=== PATIENT | female | born 1985 | race American Indian/Alaskan Native ===

== ENCOUNTER 2018-03-20 10:01 | Inpatient (IN) | payer MEDICAID ==
[2018-03-20 10:04] VITALS: BMI 31.4
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
--- NOTE | 2018-03-20 13:14 | MRI ---
Date of service: 03/20/2018 PROCEDURE: MRI BRAIN WITHOUT CONTRAST HISTORY: Blurry vision L COMPARISON: Comparison made with prior CT scan brain 10/19/2014. The yes so this is TECHNIQUE: Multiplanar, multisequence MR images of the brain were obtained without intravenous contrast enhancement. FINDINGS: HEMORRHAGE: Parenchymal, subarachnoid nor extra-axial hemorrhage. No evidence of hemosiderin deposition is identified on gradient echo weighted sequence. DWI: The there are 2 small focal areas of restricted diffusion in the periventricular and deep white matter left occipito parietal watershed zone region.. These findings are felt to represent shine through artifact (and not felt to represent acute infarcts given this patient's age and deep white matter location of the foci of restricted diffusion), likely within small MS plaques as there are additional small focal areas of on rounded elliptical shaped increased T2 signal scattered about the periventricular and slightly deeper white matter consistent with demyelinating disease process and likely multiple sclerosis. No obvious parenchymal nor extra-axial masses or collections. Ventricular and sulcal size are within range of normal for this patient's stated age BRAIN PARENCHYMA: No mass effect or edema. No atrophy or chronic microvascular ischemic changes. VENTRICLES: No obstructive hydrocephalus. CRANIUM: Calvarium unremarkable. ORBITS: Orbits and contents appear unremarkable. PARANASAL SINUSES/MASTOIDS: There is a small focal area polypoid like mucosal thickening and or mucous retention cyst formation left maxillary antrum. The VASCULAR SYSTEM: The visualized major void vascular flow voids at skull base patent the the. OTHER FINDINGS: None. IMPRESSION: Consistent with a demyelinating disease process such as multiple sclerosis. Two small focal areas of restricted diffusion in the left periatrial and subcortical white matter watershed zone left occipito parietal region likely represent shine through artifact within demyelinating plaques. Acute infarcts would be less likely in this age group and and deep white matter location. The No acute intracranial hemorrhage. These findings discussed with Dr. Hand at approximately 1:05p.m. with written down and read back verification
[2018-03-20 14:49] LABS: ALB/GLOB RATIO 1.3 (1.0-2.1); ALBUMIN 4.6 g/dL (3.5-5.0); ALT/SGPT 23 U/L (9-52); AST/SGOT 26 U/L (14-36); BLOOD UREA NITROGEN 6 mg/dl (7-17); CALCIUM 9.5 mg/dL (8.4-10.2); GFR NON-AFRICAN AMERICAN > 60
[2018-03-20 14:51] LABS: BASO # 0.1 K/uL (0.0-0.2); BASO % 0.7 % (0.0-2.0); EOS # 0.3 K/uL (0.0-0.7); EOS % 1.8 % (0.0-4.0); HEMOGLOBIN 13.8 g/dL (12.0-16.0); LYMPH # 4.9 K/uL (1.0-4.3); LYMPH % 28.3 % (20.0-40.0); MEAN CELL VOLUME 95.9 fl (81.0-99.0); MEAN CORPUSCULAR HEMOGLOBIN 30.4 pg (27.0-31.0); MEAN CORPUSCULAR HGB CONC 31.7 g/dL (33.0-37.0); MEAN PLATELET VOLUME 7.4 fl (7.2-11.7); MONO # 1.1 K/uL (0.0-0.8); MONO % 6.3 % (0.0-10.0); NEUT # 10.9 K/uL (1.8-7.0); NEUT % 62.9 % (50.0-75.0); NRBC % 0.2 % (0.0-0.0); RBC 4.55 Mil/uL (3.80-5.20); RED CELL DISTRIBUTION WIDTH 13.3 % (11.5-14.5); WHITE BLOOD COUNT 17.3 K/uL (4.8-10.8)
[2018-03-20 14:54] LABS: INR 1.1; PROTHROMBIN TIME 12.4 Seconds (9.8-13.1)
[2018-03-20] MEDS ORDERED: Potassium Chloride 20 mEq ER Tab PO STA (14:55)
[2018-03-20 14:57] LABS: PARTIAL THROMBOPLASTIN TIME 30.5 Seconds (25.6-37.1)
[2018-03-20 15:27] LABS: SQUAMOUS EPITHIAL 2 /hpf (0-5); URINE BACTERIA RARE (<OCC); URINE BILIRUBIN NEGATIVE (NEGATIVE); URINE BLOOD SMALL (NEGATIVE); URINE CLARITY SLIGHTY-CLOUDY (Clear); URINE COLOR YELLOW (YELLOW); URINE GLUCOSE (UA) NEG (NEGATIVE); URINE LEUKOCYTE ESTERASE NEG Leu/uL (Negative); URINE PROTEIN NEGATIVE (NEGATIVE); URINE UROBILINOGEN 0.2-1.0 mg/dL (0.2-1.0)
[2018-03-20] MEDS ORDERED: Potassium Chloride 20 mEq ER Tab PO ONE (15:40)
--- NOTE | 2018-03-20 22:38 | CP.PCM.CON ---
History of Present Illness - History of Present Illness History of Present Illness: Neurology Consultation Note: Mrs. Mcelroy is a 32-year-old woman who states that she has been having some numbness in her leg and developed blurry vision and pain in her left eye. She describes it as if there is a constant glare in her eyes. The patient had a test prior to CT scan and was found to be . She has two other children. CT was therefor not done, but MRI was done and demonstrated multiple T2 hyperintensities consistent with multiple sclerosis. They involve the corpus callosum and the occipital lobe. Neurology was consulted to assist with the management and care. The patient was offered an LP, but she refused tonight and said she would prefer to think about it. Steroids were not started due to the , and OB was consulted. Review of Systems - Constitutional Constitutional: As Per HPI - EENT Eyes: As Per HPI Ears: absent: As Per HPI, Decreased Hearing, Ear Discharge, Ear Pain, Tinnitus, Abnormal Hearing, Disequilibrium, Dizziness, Other Nose/Mouth/Throat: absent: As Per HPI, Epistaxis, Nasal Congestion, Nasal Discharge, Nasal Obstruction, Nasal Trauma, Nose Pain, Post Nasal Drip, Sinus Pain, Sinus Pressure, Bleeding Gums, Change in Voice, Dental Pain, Dry Mouth, Dysphagia, Halitosis, Hoarsness, Lip Swelling, Mouth Lesions, Mouth Pain, Odynophagia, Sore Throat, Throat Swelling, Tongue Swelling, Facial Pain, Neck Pain, Neck Mass, Other - Breasts Breasts: absent: As Per HPI, Change in Shape, Mass, Pain, Nipple Discharge, Nipple Inversion, Skin Changes, Swelling, Other - Cardiovascular Cardiovascular: absent: As Per HPI, Acrocyanosis, Chest Pain, Chest Pain at Rest, Chest Pain with Activity, Claudication, Diaphoresis, Dyspnea, Dyspnea on Exertion, Edema, Irregular Heart Rhythm, Pain Radiating to Arm/Neck/Jaw, Leg Edema, Leg Ulcers, Lightheadedness, Orthopnea, Palpitations, Paroxysmal Nocturnal Dyspnea, Pedal Edema, Radiating Pain, Rapid Heart Rate, Slow Heart Rate, Syncope, Other - Respiratory Respiratory: absent: As Per HPI, Cough, Dyspnea, Hemoptysis, Dyspnea on Exertion, Wheezing, Snoring, Stridor, Pain on Inspiration, Chest Congestion, Excessive Mucous Production, Change in Mucous Color, Pain with Coughing, Other - Genitourinary Genitourinary: absent: As Per HPI, Change in Urinary Stream, Difficulty Urinating, Dysuria, Flank Pain, Hematuria, Pyuria, Nocturia, Urinary Incontinence, Urinary Frequency, Urinary Hesitance, Urinary Urgency, Voiding Freq/Small Amts, Freq UTI, Hx Renal/Bladder Calculi, Hx /Renal Surgery, Bladder Distension, Other - Musculoskeletal Musculoskeletal: absent: As Per HPI, Abnormal Gait, Arthralgias, Atrophy, Back Pain, Deformity, Joint Swelling, Limited Range of Motion, Loss of Height, Muscle Cramps, Muscle Weakness, Myalgias, Neck Pain, Numbness, Radiating Pain into Limb , Stiffness, Tingling, Other - Integumentary Integumentary: absent: As Per HPI, Acne, Alopecia, Bleeding Lesions, Change in Hair, Change in Nails, Change in Pigmentation, Changing Lesions, Dry Skin, Erythema, Furuncle, Hirsutism, Lesions, New Lesions, Non-Healing Lesions, Photosensitivity, Pruritus, Rash, Skin Pain, Skin Ulcer, Sores, Striae, Swelling, Unusual Bruising, Wounds, Jaundice, Other - Neurological Neurological: As Per HPI - Psychiatric Psychiatric: absent: As Per HPI, Abnormal Sleep Pattern, Anhedonia, Anxiety, Auditory Hallucinations, Behavioral Changes, Change in Appetite, Change in Libido, Confusion, Depression, Difficulty Concentrating, Hallucinations, Homicid al Ideation, Hopelessness, Irritability, Memory Loss, Mood Swings, Panic Attacks, Paranoia, Suicidal Ideation, Visual Hallucinations, Tactile Hallucinations, Other - Endocrine Endocrine: absent: As Per HPI, Change in Body Appearance, Change in Libido, Cold Intolorance, Deepening of Voice, Excessive Sweating, Fatigue, Flushing, Heat Intolorance, Increase in Ring/Shoe/Hat Size, Palpitations, Polydipsia, Polyphagia, Polyuria, Other - Hematologic/Lymphatic Hematologic: absent: As Per HPI, Easy Bleeding, Easy Bruising, Lymphadenopathy, Other Past Patient History - Past Social History Smoking Status: Light Smoker < 10 Cigarettes Daily - PULMONARY Hx Asthma: Yes - PSYCHIATRIC Hx Substance Use: No - SURGICAL HISTORY Hx Cholecystectomy: Yes - ANESTHESIA Hx Anesthesia: Yes Hx Anesthesia Reactions: No Meds Allergies/Adverse Reactions: Allergies Allergy/AdvReac Type Severity Reaction Status Date / Time Penicillins Allergy SWELLING Verified 03/20/18 10:09 Physical Exam - Constitutional Appears: Well - Head Exam Head Exam: ATRAUMATIC, NORMAL INSPECTION, NORMOCEPHALIC - Eye Exam Eye Exam: EOMI, Normal appearance, PERRL Pupil Exam: NORMAL ACCOMODATION, PERRL Additional comments: The patient complains of blurry vision of the left eye. Fundoscopic exam was normal. - ENT Exam ENT Exam: Mucous Membranes Moist, Normal Exam - Neck Exam Neck exam: Positive for: Normal Inspection - Respiratory Exam Respiratory Exam: Clear to Auscultation Bilateral, NORMAL BREATHING PATTERN - Cardiovascular Exam Cardiovascular Exam: REGULAR RHYTHM, +S1, +S2 - GI/Abdominal Exam GI & Abdominal Exam: Normal Bowel Sounds, Soft. absent: Tenderness - Extremities Exam Extremities exam: Positive for: normal inspection - Back Exam Back exam: NORMAL INSPECTION - Neurological Exam Neurological exam: Alert, CN II-XII Intact, Normal Gait, Oriented x3, Reflexes Normal Additional comments: Decreased sensation over the left lower extremity as compared with the right. Slight pronator drift on the right. - Psychiatric Exam Psychiatric exam: Normal Affect, Normal Mood - Skin Skin Exam: Dry, Intact, Normal Color, Warm Results - Vital Signs Recent Vital Signs: Last Vital Signs Temp 98.2 F 03/20/18 19:42 Pulse 89 03/20/18 19:42 Resp 20 03/20/18 19:42 BP 110/73 03/20/18 19:42 Pulse Ox 97 03/20/18 19:42 - Labs Result Diagrams: 03/20/18 14:40 03/20/18 14:25 Labs: Laboratory Results - last 24 hr 03/20/18 03/20/18 03/20/18 14:25 14:25 14:40 WBC 17.3 H D RBC 4.55 Hgb 13.8 Hct 43.6 MCV 95.9 MCH 30.4 MCHC 31.7 L RDW 13.3 Plt Count 62 L D MPV 7.4 Neut % (Auto) 62.9 Lymph % (Auto) 28.3 [place] % (Auto) 6.3 Eos % (Auto) 1.8 Baso % (Auto) 0.7 Neut # (Auto) 10.9 H Lymph # (Auto) 4.9 H [place] # (Auto) 1.1 H Eos # (Auto) 0.3 Baso # (Auto) 0.1 PT 12.4 INR 1.1 APTT 30.5 Sodium 138 Potassium 3.5 L Chloride 104 Carbon Dioxide 24 Anion Gap 14 BUN 6 L Creatinine 0.6 L Est GFR ( Amer) > 60 Est GFR (Non-Af Amer) > 60 Random Glucose 89 Calcium 9.5 Total Bilirubin 0.6 AST 26 ALT 23 Alkaline Phosphatase 55 Total Protein 8.1 Albumin 4.6 Globulin 3.5 Albumin/Globulin Ratio 1.3 Beta HCG, Quant 6760.50 Urine Color Urine Clarity Urine pH Ur Specific [place] Urine Protein Urine Glucose (UA) Urine Ketones Urine Blood Urine Nitrate Urine Bilirubin Urine Urobilinogen Ur Leukocyte Esterase Urine RBC (Auto) Urine Microscopic WBC Ur Squamous Epith Cells Urine Bacteria 03/20/18 15:10 WBC RBC Hgb Hct MCV MCH MCHC RDW Plt Count MPV Neut % (Auto) Lymph % (Auto) [place] % (Auto) Eos % (Auto) Baso % (Auto) Neut # (Auto) Lymph # (Auto) [place] # (Auto) Eos # (Auto) Baso # (Auto) PT INR APTT Sodium Potassium Chloride Carbon Dioxide Anion Gap BUN Creatinine Est GFR ( Amer) Est GFR (Non-Af Amer) Random Glucose Calcium Total Bilirubin AST ALT Alkaline Phosphatase Total Protein Albumin Globulin Albumin/Globulin Ratio Beta HCG, Quant Urine Color Yellow Urine Clarity Slighty-cloudy Urine pH 6.0 Ur Specific [place] 1.012 Urine Protein Negative Urine Glucose (UA) Neg Urine Ketones Negative Urine Blood Small Urine Nitrate Negative Urine Bilirubin Negative Urine Urobilinogen 0.2-1.0 Ur Leukocyte Esterase Neg Urine RBC (Auto) 4 H Urine Microscopic WBC < 1 Ur Squamous Epith Cells 2 Urine Bacteria Rare Assessment & Plan (1) Multiple sclerosis Assessment and Plan: The patient's symptoms and imaging are consistent with MS and optic neuritis. The risks/benefits of steroids were discussed with the patient. Help from OB is appreciated to determine the risk for the baby as well. IF the patient agrees CSF analysis may be obtained. I recommended that the patient is transferred or receives care from a specialty MS center like [facility] or [facility]. Thank you for this consultation. Status: Acute
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
[2018-03-21 07:46] LABS: HEMOGLOBIN 13.1 g/dL (12.0-16.0); MEAN CELL VOLUME 95.4 fl (81.0-99.0); MEAN CORPUSCULAR HGB CONC 32.5 g/dL (33.0-37.0); RBC 4.23 Mil/uL (3.80-5.20); RED CELL DISTRIBUTION WIDTH 13.2 % (11.5-14.5); WHITE BLOOD COUNT 14.8 K/uL (4.8-10.8)
[2018-03-21 09:03] LABS: ALB/GLOB RATIO 1.3 (1.0-2.1); ALT/SGPT 22 U/L (9-52); AST/SGOT 18 U/L (14-36); BLOOD UREA NITROGEN 8 mg/dl (7-17); GFR NON-AFRICAN AMERICAN > 60
--- NOTE | 2018-03-21 09:03 | CP.PCM.CON ---
History of Present Illness - History of Present Illness History of Present Illness: 32yo female admitted for eye pain wit recent diagnosis of optic neuritis and MS. Pt incidentally found to be . Ultrasound reveals one, possibly two, intrauterine gestational sacs. Yolk sac visualized in one gestational sac. Otherwise unremarkable ultrasound. Pt denied any abd pain, cramping, bleeding, nausea or vomiting. I discussed ultrasound findings with patient. Also discussed general precautions and information. Past Patient History - Past Medical History & Family History Past Medical History?: Yes - Past Social History Smoking Status: Light Smoker < 10 Cigarettes Daily - CARDIAC Hx Cardiac Disorders: No - PULMONARY Hx Asthma: Yes - NEUROLOGICAL Hx Neurological Disorder: No - HEENT Hx HEENT Problems: Yes Hx Blind: Yes (R eye - congenital) - RENAL Hx Chronic Kidney Disease: No - ENDOCRINE/METABOLIC Hx Endocrine Disorders: No - HEMATOLOGICAL/ONCOLOGICAL Hx Blood Disorders: No Hx AIDS: No Hx Human Immunodeficiency Virus (HIV): No - INTEGUMENTARY Hx Dermatological Problems: No - MUSCULOSKELETAL/RHEUMATOLOGICAL Hx Musculoskeletal Disorders: No Hx Falls: No - GASTROINTESTINAL Hx Gastrointestinal Disorders: No - GENITOURINARY/GYNECOLOGICAL Hx Genitourinary Disorders: No - PSYCHIATRIC Hx Substance Use: No - SURGICAL HISTORY Hx Cholecystectomy: Yes - ANESTHESIA Hx Anesthesia: Yes Hx Anesthesia Reactions: No Meds Allergies/Adverse Reactions: Allergies Allergy/AdvReac Type Severity Reaction Status Date / Time Penicillins Allergy SWELLING Verified 03/20/18 10:09 Physical Exam - Constitutional Appears: Well, No Acute Distress - Head Exam Head Exam: ATRAUMATIC - Eye Exam Eye Exam: PERRL - ENT Exam ENT Exam: Mucous Membranes Moist - Respiratory Exam Respiratory Exam: NORMAL BREATHING PATTERN - Cardiovascular Exam Cardiovascular Exam: REGULAR RHYTHM - GI/Abdominal Exam GI & Abdominal Exam: Soft. absent: Distended, Tenderness Results - Vital Signs Recent Vital Signs: Last Vital Signs Temp 97.5 F L 03/21/18 07:54 Pulse 74 03/21/18 07:54 Resp 20 03/21/18 07:54 BP 100/67 03/21/18 07:54 Pulse Ox 98 03/21/18 07:54 - Labs Result Diagrams: 03/21/18 05:30 03/20/18 14:25 Labs: Laboratory Results - last 24 hr 03/20/18 03/20/18 03/20/18 14:25 14:25 14:40 WBC 17.3 H D RBC 4.55 Hgb 13.8 Hct 43.6 MCV 95.9 MCH 30.4 MCHC 31.7 L RDW 13.3 Plt Count 62 L D MPV 7.4 Neut % (Auto) 62.9 Lymph % (Auto) 28.3 Cobb % (Auto) 6.3 Eos % (Auto) 1.8 Baso % (Auto) 0.7 Neut # (Auto) 10.9 H Lymph # (Auto) 4.9 H Cobb # (Auto) 1.1 H Eos # (Auto) 0.3 Baso # (Auto) 0.1 PT 12.4 INR 1.1 APTT 30.5 Sodium 138 Potassium 3.5 L Chloride 104 Carbon Dioxide 24 Anion Gap 14 BUN 6 L Creatinine 0.6 L Est GFR ( Amer) > 60 Est GFR (Non-Af Amer) > 60 Random Glucose 89 Calcium 9.5 Total Bilirubin 0.6 AST 26 ALT 23 Alkaline Phosphatase 55 Total Protein 8.1 Albumin 4.6 Globulin 3.5 Albumin/Globulin Ratio 1.3 Beta HCG, Quant 6760.50 Urine Color Urine Clarity Urine pH Ur Specific [place]li[place] Urine Protein Urine Glucose (UA) Urine Ketones Urine Blood Urine Nitrate Urine Bilirubin Urine Urobilinogen Ur Leukocyte Esterase Urine RBC (Auto) Urine Microscopic WBC Ur Squamous Epith Cells Urine Bacteria 03/20/18 03/21/18 15:10 05:30 WBC 14.8 H RBC 4.23 Hgb 13.1 Hct 40.3 MCV 95.4 MCH 31.0 MCHC 32.5 L RDW 13.2 Plt Count 32 L D MPV Neut % (Auto) Lymph % (Auto) Cobb % (Auto) Eos % (Auto) Baso % (Auto) Neut # (Auto) Lymph # (Auto) Cobb # (Auto) Eos # (Auto) Baso # (Auto) PT INR APTT Sodium Potassium Chloride Carbon Dioxide Anion Gap BUN Creatinine Est GFR ( Amer) Est GFR (Non-Af Amer) Random Glucose Calcium Total Bilirubin AST ALT Alkaline Phosphatase Total Protein Albumin Globulin Albumin/Globulin Ratio Beta HCG, Quant Urine Color Yellow Urine Clarity Slighty-cloudy Urine pH 6.0 Ur Specific [place] 1.012 Urine Protein Negative Urine Glucose (UA) Neg Urine Ketones Negative Urine Blood Small Urine Nitrate Negative Urine Bilirubin Negative Urine Urobilinogen 0.2-1.0 Ur Leukocyte Esterase Neg Urine RBC (Auto) 4 H Urine Microscopic WBC < 1 Ur Squamous Epith Cells 2 Urine Bacteria Rare - Imaging and Cardiology US - abdomen Status: Image reviewed by me, Report reviewed by me Additional comment: OB pelvic ultrasound Assessment & Plan - Assessment and Plan (Free Text) Assessment: MS and optic neuritis. <5wks gestation age with IUP, possible twins gestation. No obstetrical issues at this time. Plan: I discussed plan with Maternal Medicine. vitamins. Steroid course can be used if indicated. Pain control. NSAIDS can be used in until third trimester. Medical management via neurology team. Recommend full consultation with MFM as outpatient [facility] to discuss vp site issues. I discussed plan with patient and all patient questions answered. - Date & Time Date: 03/21/18 Time: 09:09
[2018-03-21] MEDS ORDERED: methylPREDNISolone 1 GM in Sodium Chloride 0.9% 250 ML IV ONE (12:03)
[2018-03-21] MEDS: Prenatal Multivit/Folic Acid/Iron Tab PO SCH (13:50)
--- NOTE | 2018-03-21 13:56 | CP.PCM.PN ---
Subjective - Date & Time of Evaluation Date of Evaluation: 03/21/18 Time of Evaluation: 13:54 - Subjective Subjective: Ms. Mcelroy was seen and examined today at bedside. She complained of worsening vision and eye pain today. OB agrees that steroids can be used at this time. Objective - Vital Signs/Intake and Output Vital Signs (last 24 hours): Temp Pulse Resp BP Pulse Ox 97.5 F L 74 20 100/67 98 03/21/18 07:54 03/21/18 07:54 03/21/18 07:54 03/21/18 07:54 03/21/18 07:54 - Medications Medications: Current Medications Famotidine (Pepcid) 20 mg PO BID [facility] Multivit/Folic Acid/Iron () 1 tab PO DAILY [facility] Last Admin: 03/21/18 13:50 Dose: 1 tab - Labs Labs: 03/21/18 05:30 03/21/18 05:30 PT 12.4 Seconds (9.8-13.1) 03/20/18 14:25 INR 1.1 03/20/18 14:25 APTT 30.5 Seconds (25.6-37.1) 03/20/18 14:25 - Neurological Exam Neurological Exam: Alert, Awake, Normal Gait, Oriented x3 Neuro motor strength exam: Left Upper Extremity: 5, Right Upper Extremity: 5, Left Lower Extremity: 5, Right Lower Extremity: 5 Additional comments: Decreased sensation on the left side similar to yesterday. She has CN II involvement on the left side. Otherwise CN 2-12 are normal. Assessment and Plan (1) Multiple sclerosis Assessment & Plan: Will start Solumedrol 1000 mg daily for 3-5 days depending on response. GI prophylaxis will be started as well. The patient will be followed up as an outpatient with an MS specialty center. Status: Acute
--- NOTE | 2018-03-21 21:39 | CARD ---
APPROVED REPORT Date of service: 03/20/2018 EKG Measurement Heart [id number] <Conclusion> Normal sinus rhythm Prolonged QT Abnormal ECG
--- NOTE | 2018-03-22 08:46 | CP.PCM.PN ---
Subjective - Date & Time of Evaluation Date of Evaluation: 03/22/18 Time of Evaluation: 08:46 - Subjective Subjective: pt c/o headache and sharp lower abd pain. no f/c, n/v/d. states hot shower helped headache yesterday, abd pain started thi vincenzo has been on pulse steroids as per neuro for newonset M/S with optic neuritis. Objective - Vital Signs/Intake and Output Vital Signs (last 24 hours): Temp Pulse Resp BP Pulse Ox 98.0 F 95 H 20 103/67 98 03/22/18 08:07 03/22/18 08:07 03/22/18 08:07 03/22/18 08:07 03/22/18 08:07 - Medications Medications: Current Medications Famotidine (Pepcid) 20 mg PO BID [facility] Last Admin: 03/21/18 16:46 Dose: 20 mg Methylprednisolone 1 gm/ (Sodium Chloride) 250 mls @ 62.5 mls/hr IV DAILY [facility] Stop: 03/24/18 11:00 Multivit/Folic Acid/Iron () 1 tab PO DAILY [facility] Last Admin: 03/21/18 13:50 Dose: 1 tab - Labs Labs: 03/21/18 05:30 03/21/18 05:30 PT 12.4 Seconds (9.8-13.1) 03/20/18 14:25 INR 1.1 03/20/18 14:25 APTT 30.5 Seconds (25.6-37.1) 03/20/18 14:25 - Constitutional Appears: Well, Non-toxic, No Acute Distress - Head Exam Head Exam: ATRAUMATIC, NORMAL INSPECTION, NORMOCEPHALIC - Eye Exam Eye Exam: EOMI, Normal appearance, PERRL Pupil Exam: NORMAL ACCOMODATION, PERRL - ENT Exam ENT Exam: Mucous Membranes Moist, Normal Exam - Neck Exam Neck Exam: Full ROM, Normal Inspection. absent: Lymphadenopathy - Respiratory Exam Respiratory Exam: Clear to Ausculation Bilateral, NORMAL BREATHING PATTERN - Cardiovascular Exam Cardiovascular Exam: REGULAR RHYTHM, RRR, +S1, +S2. absent: Murmur - GI/Abdominal Exam GI & Abdominal Exam: Soft, Normal Bowel Sounds. absent: Tenderness - Extremities Exam Extremities Exam: Full ROM, Normal Capillary Refill, Normal Inspection. absent: Joint Swelling, Pedal Edema - Back Exam Back Exam: NORMAL INSPECTION - Neurological Exam Neurological Exam: Alert, Awake, CN II-XII Intact, Normal Gait, Oriented x3 - Psychiatric Exam Psychiatric exam: Normal Affect, Normal Mood - Skin Skin Exam: Dry, Intact, Normal Color, Warm Assessment and Plan (1) DVT prophylaxis Assessment & Plan: scd and ae hose ambulation Status: Acute (2) Multiple sclerosis Assessment & Plan: refused lp steroids neuro mri noted Status: Acute (3) Optic neuritis Assessment & Plan: pulse steroids neuro refused lp Status: Acute (4) Assessment & Plan: obgyn us and bw noted vit- Status: Acute (5) Acute ITP Assessment & Plan: heme/onc, monitor Status: Acute (6) Abdominal pain Assessment & Plan: obgyn consult Status: Acute (7) Headache Assessment & Plan: saline rinses shower prn d/c tylenol w/ pt. will hold order for now Status: Acute
[2018-03-22] MEDS ORDERED: Nasal Spray(Ocean spray) NAS PRN (08:50)
[2018-03-22] MEDS: Prenatal Multivit/Folic Acid/Iron Tab PO SCH (09:40)
--- NOTE | 2018-03-22 09:40 | US ---
Date of service: 03/20/2018 PROCEDURE: OB Pelvic Ultrasound HISTORY: Medical clearance COMPARISON: None available. FINDINGS: UTERUS: There are 2 intrauterine gestational sacs. Gestational sac diameter is too small to accurately characterize gestational age. Shital-gestational hemorrhage: None. Uterus measures 9.3 x 5.4 x 5.5 cm. No mass CERVIX: Long and closed. No cervical abnormality seen. RIGHT OVARY: Measures 2.9 x 3.1 x 1.9 cm. No mass. Normal flow. LEFT OVARY: Measures 3.1 x 3.1 x 2.2 cm. No mass. Normal flow. FREE FLUID: None. OTHER FINDINGS: None. IMPRESSION: Two intrauterine gestational sac too small to accurately characterize gestational age. Clinical follow-up, correlation with serial beta HCG levels and follow-up ultrasound imaging is recommended to confirm viability. A preliminary report was provided by [employer].
[2018-03-22] MEDS: methylPREDNISolone 1 GM in Sodium Chloride 0.9% 250 ML IV SCH (10:13)
--- NOTE | 2018-03-22 14:13 | CP.PCM.CON ---
Past Patient History - Past Medical History & Family History Past Medical History?: Yes - Past Social History Smoking Status: Light Smoker < 10 Cigarettes Daily - CARDIAC Hx Cardiac Disorders: No - PULMONARY Hx Asthma: Yes - NEUROLOGICAL Hx Neurological Disorder: No - HEENT Hx HEENT Problems: Yes Hx Blind: Yes (R eye - congenital) - RENAL Hx Chronic Kidney Disease: No - ENDOCRINE/METABOLIC Hx Endocrine Disorders: No - HEMATOLOGICAL/ONCOLOGICAL Hx Blood Disorders: No Hx AIDS: No Hx Human Immunodeficiency Virus (HIV): No - INTEGUMENTARY Hx Dermatological Problems: No - MUSCULOSKELETAL/RHEUMATOLOGICAL Hx Musculoskeletal Disorders: No Hx Falls: No - GASTROINTESTINAL Hx Gastrointestinal Disorders: No - GENITOURINARY/GYNECOLOGICAL Hx Genitourinary Disorders: No - PSYCHIATRIC Hx Substance Use: No - SURGICAL HISTORY Hx Cholecystectomy: Yes - ANESTHESIA Hx Anesthesia: Yes Hx Anesthesia Reactions: No Meds Allergies/Adverse Reactions: Allergies Allergy/AdvReac Type Severity Reaction Status Date / Time Penicillins Allergy SWELLING Verified 03/20/18 10:09 - Medications Medications: Current Medications Famotidine (Pepcid) 20 mg PO BID [facility] Last Admin: 03/22/18 09:40 Dose: 20 mg Methylprednisolone 1 gm/ (Sodium Chloride) 250 mls @ 62.5 mls/hr IV DAILY [facility] Stop: 03/24/18 11:00 Last Admin: 03/22/18 10:13 Dose: 62.5 mls/hr Multivit/Folic Acid/Iron () 1 tab PO DAILY [facility] Last Admin: 03/22/18 09:40 Dose: 1 tab Sodium Chloride ([place] Nasal [place]) 2 sprays TONIA Q4 PRN PRN Reason: Nasal congestion Results - Vital Signs Recent Vital Signs: Last Vital Signs Temp 98.0 F 03/22/18 08:07 Pulse 95 H 03/22/18 08:07 Resp 20 03/22/18 08:07 BP 103/67 03/22/18 08:07 Pulse Ox 98 03/22/18 08:07 - Labs Result Diagrams: 03/21/18 05:30 03/21/18 05:30 Labs: Laboratory Results - last 24 hr 03/22/18 11:18 Serum HCG, Qual Positive Beta HCG, Quant 05701.00
--- NOTE | 2018-03-22 17:28 | US ---
Date of service: 03/22/2018 PROCEDURE: TRANSVAGINAL OBSTETRIC ULTRASONOGRAPHY HISTORY: f/u; abd pain COMPARISON: Prior pelvic ultrasound 03/20/2018. TECHNIQUE: Pelvic ultrasounds for transvaginal technique in longitudinal and transverse projections. Spectral Doppler analysis was also utilized. FINDINGS: In the interval, twin intrauterine gestations are identified within the endometrial cavity with yolk sac and decidual reaction appreciated but no pole at either gestational sac at this time. Twenty mean sac diameter is 0.9 cm with twin B, 0.8 cm indicating gestational age of less than 5 weeks approximately. Last menstrual period is reported 11/21/2018 suggesting 5 week 1 day gestation, concordant with the current findings essentially. No suspicious decidual changes suggests significant hemorrhage at this time. Yolk sac twin a measures 0.2 cm with yolk sac 20 measuring 0.2 cm as well. Uterus is anteverted measuring 9.4 x 5.0 x 6.8 cm without focal myometrial lesion. Cervix is closed with small sub cm nabothian cyst identified. No suspicious myometrial changes with the cervix measuring 3.5 cm. Right ovary measures 3.9 x 2.0 x 2.4 cm with the left ovary measuring 3.0 x 2.0 x 2.2 cm. No sonographic evidence suggest torsion bilaterally. IMPRESSION: Twenty intrauterine gestation is identified with mean sac diameter indicating less than 5 weeks estimated gestational age which is concordant with menstrual dates of 5 weeks 1 day. Yolk sac is identified within each gestational sac but no pole is identified at this time. Viable intrauterine gestations are not yet proven but are also not completely excluded and continued serial serum beta HCG analysis is advised as well as 1 week transvaginal pelvic ultrasound follow-up.
[2018-03-23 06:00] LABS: BASO % 0.1 % (0.0-2.0); HEMOGLOBIN 13.7 g/dL (12.0-16.0); LYMPH # 2.1 K/uL (1.0-4.3); LYMPH % 6.2 % (20.0-40.0); MEAN CELL VOLUME 93.4 fl (81.0-99.0); MEAN CORPUSCULAR HEMOGLOBIN 30.4 pg (27.0-31.0); MEAN CORPUSCULAR HGB CONC 32.5 g/dL (33.0-37.0); MEAN PLATELET VOLUME 7.8 fl (7.2-11.7); MONO # 2.2 K/uL (0.0-0.8); MONO % 6.6 % (0.0-10.0); NEUT # 29.1 K/uL (1.8-7.0); NEUT % 87.1 % (50.0-75.0); RED CELL DISTRIBUTION WIDTH 13.5 % (11.5-14.5); WHITE BLOOD COUNT 33.4 K/uL (4.8-10.8)
[2018-03-23 06:23] LABS: ALB/GLOB RATIO 1.3 (1.0-2.1); ALBUMIN 4.5 g/dL (3.5-5.0); ALT/SGPT 19 U/L (9-52); AST/SGOT 13 U/L (14-36); BLOOD UREA NITROGEN 11 mg/dl (7-17); CALCIUM 9.6 mg/dL (8.4-10.2); GFR NON-AFRICAN AMERICAN > 60
[2018-03-23] MEDS: Prenatal Multivit/Folic Acid/Iron Tab PO SCH (08:28)
[2018-03-23 09:03] LABS: BANDS 2 % (0-2); BASOPHIL 1 % (0-2); LYMPHOCYTE 3 % (20-50); MONOCYTE 1 % (0-10); NEUTROPHIL 93 % (42-75); TOTAL CELLS COUNTED 100
[2018-03-23 09:04] LABS: PLATELET CLUMPS PRESENT
[2018-03-23 09:05] LABS: PLATELET COUNT 72 K/uL (130-400)
[2018-03-23] MEDS: methylPREDNISolone 1 GM in Sodium Chloride 0.9% 250 ML IV SCH (10:36)
--- NOTE | 2018-03-23 19:31 | CP.PCM.PN ---
Subjective - Date & Time of Evaluation Date of Evaluation: 03/23/18 Time of Evaluation: 19:30 - Subjective Subjective: pt doing well no blurred vision today no bodyaches or any other complaints abd pain resolved us and bhcg noted bw noted per heme onc pts low plts ?? from preg ateroids should help elev wbc from steroida Objective - Vital Signs/Intake and Output Vital Signs (last 24 hours): Temp Pulse Resp BP Pulse Ox 98.3 F 74 18 101/74 97 03/23/18 17:00 03/23/18 17:00 03/23/18 17:00 03/23/18 17:00 03/23/18 17:00 - Medications Medications: Current Medications Famotidine (Pepcid) 20 mg PO BID [facility] Last Admin: 03/23/18 16:33 Dose: 20 mg Methylprednisolone 1 gm/ (Sodium Chloride) 250 mls @ 62.5 mls/hr IV DAILY [facility] Stop: 03/24/18 11:00 Last Admin: 03/23/18 10:36 Dose: 62.5 mls/hr Multivit/Folic Acid/Iron () 1 tab PO DAILY [facility] Last Admin: 03/23/18 08:28 Dose: 1 tab Sodium Chloride ([place] Nasal [place]) 2 sprays TONIA Q4 PRN PRN Reason: Nasal congestion - Labs Labs: 03/23/18 05:26 03/23/18 05:26 PT 12.4 Seconds (9.8-13.1) 03/20/18 14:25 INR 1.1 03/20/18 14:25 APTT 30.5 Seconds (25.6-37.1) 03/20/18 14:25 - Constitutional Appears: Well, Non-toxic, No Acute Distress - Head Exam Head Exam: ATRAUMATIC, NORMAL INSPECTION, NORMOCEPHALIC - Eye Exam Eye Exam: EOMI, Normal appearance, PERRL Pupil Exam: NORMAL ACCOMODATION, PERRL - ENT Exam ENT Exam: Mucous Membranes Moist, Normal Exam - Neck Exam Neck Exam: Full ROM, Normal Inspection. absent: Lymphadenopathy - Respiratory Exam Respiratory Exam: Clear to Ausculation Bilateral, NORMAL BREATHING PATTERN - Cardiovascular Exam Cardiovascular Exam: REGULAR RHYTHM, RRR, +S1, +S2. absent: Murmur - GI/Abdominal Exam GI & Abdominal Exam: Soft, Normal Bowel Sounds. absent: Tenderness - Extremities Exam Extremities Exam: Full ROM, Normal Capillary Refill, Normal Inspection. absent: Joint Swelling, Pedal Edema - Back Exam Back Exam: NORMAL INSPECTION - Neurological Exam Neurological Exam: Alert, Awake, CN II-XII Intact, Normal Gait, Oriented x3 - Psychiatric Exam Psychiatric exam: Normal Affect, Normal Mood - Skin Skin Exam: Dry, Intact, Normal Color, Warm Assessment and Plan (1) DVT prophylaxis Status: Acute (2) Multiple sclerosis Status: Acute (3) Optic neuritis Status: Acute (4) Status: Acute (5) Acute ITP Status: Acute (6) Abdominal pain Status: Acute (7) Headache Status: Acute - Assessment and Plan (Free Text) Assessment: (1) DVT prophylaxis Assessment & Plan: scd and ae hose ambulation Status: Acute (2) Multiple sclerosis Assessment & Plan: refused lp steroids neuro mri noted Status: Acute (3) Optic neuritis Assessment & Plan: pulse steroids neuro refused lp Status: Acute (4) Assessment & Plan: obgyn us and bw noted vit- Status: Acute (5) Acute ITP Assessment & Plan: heme/onc, monitor Status: Acute (6) Abdominal pain Assessment & Plan: obgyn consult Status: Acute (7) Headache Assessment & Plan: saline rinses shower prn d/c tylenol w/ pt. will hold order for now Status: Acute overall doing well. no complaints. pending neuro clearance for dc
[2018-03-24 00:05] VITALS: RESP 20
[2018-03-24 07:57] VITALS: BP 121/77; PULSE 71; TEMP 98.1; O2SAT 97
[2018-03-24] MEDS: methylPREDNISolone 1 GM in Sodium Chloride 0.9% 250 ML IV SCH (08:20)
[2018-03-24] MEDS: Prenatal Multivit/Folic Acid/Iron Tab PO SCH (08:20)
--- NOTE | 2018-03-24 09:09 | CP.PCM.PN ---
Subjective - Date & Time of Evaluation Date of Evaluation: 03/24/18 Time of Evaluation: 09:08 - Subjective Subjective: ppt doing well. w/o complaints. no f/c, n/v/d. no muñoz/blurred vision no abd pain. no vaginal dc/bleeding reported pendign neuro clearance for dc Objective - Vital Signs/Intake and Output Vital Signs (last 24 hours): Temp Pulse Resp BP Pulse Ox 98.1 F 71 20 121/77 97 03/24/18 07:56 03/24/18 07:56 03/24/18 07:56 03/24/18 07:56 03/24/18 07:56 - Medications Medications: Current Medications Famotidine (Pepcid) 20 mg PO BID [facility] Last Admin: 03/24/18 08:20 Dose: 20 mg Methylprednisolone 1 gm/ (Sodium Chloride) 250 mls @ 62.5 mls/hr IV DAILY [facility] Stop: 03/24/18 11:00 Last Admin: 03/24/18 08:20 Dose: 62.5 mls/hr Multivit/Folic Acid/Iron () 1 tab PO DAILY [facility] Last Admin: 03/24/18 08:20 Dose: 1 tab Sodium Chloride ([place] Nasal [place]) 2 sprays TONIA Q4 PRN PRN Reason: Nasal congestion - Labs Labs: 03/23/18 05:26 03/23/18 05:26 PT 12.4 Seconds (9.8-13.1) 03/20/18 14:25 INR 1.1 03/20/18 14:25 APTT 30.5 Seconds (25.6-37.1) 03/20/18 14:25 - Constitutional Appears: Well, Non-toxic, No Acute Distress - Head Exam Head Exam: ATRAUMATIC, NORMAL INSPECTION, NORMOCEPHALIC - Eye Exam Eye Exam: EOMI, Normal appearance, PERRL Pupil Exam: NORMAL ACCOMODATION, PERRL - ENT Exam ENT Exam: Mucous Membranes Moist, Normal Exam - Neck Exam Neck Exam: Full ROM, Normal Inspection. absent: Lymphadenopathy - Respiratory Exam Respiratory Exam: Clear to Ausculation Bilateral, NORMAL BREATHING PATTERN - Cardiovascular Exam Cardiovascular Exam: REGULAR RHYTHM, RRR, +S1, +S2. absent: Murmur - GI/Abdominal Exam GI & Abdominal Exam: Soft, Normal Bowel Sounds. absent: Tenderness - Extremities Exam Extremities Exam: Full ROM, Normal Capillary Refill, Normal Inspection. absent: Joint Swelling, Pedal Edema - Back Exam Back Exam: NORMAL INSPECTION - Neurological Exam Neurological Exam: Alert, Awake, CN II-XII Intact, Normal Gait, Oriented x3 - Psychiatric Exam Psychiatric exam: Normal Affect, Normal Mood - Skin Skin Exam: Dry, Intact, Normal Color, Warm Assessment and Plan (1) DVT prophylaxis Status: Acute (2) Multiple sclerosis Status: Acute (3) Optic neuritis Status: Acute (4) Status: Acute (5) Acute ITP Status: Acute (6) Abdominal pain Status: Acute (7) Headache Status: Acute - Assessment and Plan (Free Text) Assessment: (1) DVT prophylaxis Assessment & Plan: scd and ae hose ambulation Status: Acute (2) Multiple sclerosis Assessment & Plan: refused lp steroids neuro mri noted Status: Acute (3) Optic neuritis Assessment & Plan: pulse steroids neuro refused lp Status: Acute (4) Assessment & Plan: obgyn us and bw noted vit- Status: Acute (5) Acute ITP Assessment & Plan: heme/onc, monitor Status: Acute (6) Abdominal pain Assessment & Plan: obgyn consult Status: Acute (7) Headache Assessment & Plan: saline rinses shower prn d/c tylenol w/ pt. will hold order for now Status: Acute overall doing well. no complaints. pending neuro clearance for dc
[2018-03-24 10:57] LABS: HEMOGLOBIN 13.7 g/dL (12.0-16.0); MEAN CELL VOLUME 95.1 fl (81.0-99.0); MEAN CORPUSCULAR HEMOGLOBIN 30.5 pg (27.0-31.0); MEAN CORPUSCULAR HGB CONC 32.1 g/dL (33.0-37.0); RBC 4.5 Mil/uL (3.80-5.20); RED CELL DISTRIBUTION WIDTH 13.3 % (11.5-14.5); WHITE BLOOD COUNT 29.3 K/uL (4.8-10.8)
[2018-03-24 11:19] LABS: BLOOD UREA NITROGEN 14 mg/dl (7-17); CALCIUM 9.8 mg/dL (8.4-10.2); GFR NON-AFRICAN AMERICAN > 60
--- NOTE | 2018-03-24 11:44 | CP.PCM.PN ---
Subjective - Date & Time of Evaluation Date of Evaluation: 03/24/18 Time of Evaluation: 11:44 - Subjective Subjective: Neurology Follow-Up Note: Objective - Vital Signs/Intake and Output Vital Signs (last 24 hours): Temp Pulse Resp BP Pulse Ox 98.1 F 71 20 121/77 97 03/24/18 07:56 03/24/18 07:56 03/24/18 07:56 03/24/18 07:56 03/24/18 07:56 - Medications Medications: Current Medications Famotidine (Pepcid) 20 mg PO BID [facility] Last Admin: 03/24/18 08:20 Dose: 20 mg Multivit/Folic Acid/Iron () 1 tab PO DAILY [facility] Last Admin: 03/24/18 08:20 Dose: 1 tab Sodium Chloride ([place] Nasal [place]) 2 sprays TONIA Q4 PRN PRN Reason: Nasal congestion - Labs Labs: 03/24/18 10:51 03/24/18 10:51 PT 12.4 Seconds (9.8-13.1) 03/20/18 14:25 INR 1.1 03/20/18 14:25 APTT 30.5 Seconds (25.6-37.1) 03/20/18 14:25
--- NOTE | 2018-03-24 13:45 | CP.PCM.PN ---
Subjective - Date & Time of Evaluation Date of Evaluation: 03/24/18 Time of Evaluation: 13:45 - Subjective Subjective: Neurology Follow-Up Note: Ms. Mcelroy was evaluated this afternoon. She admits to feeling good today. Admits to improved blurry vision on the left eye. She is eager to be d/c'd home. Denies h/a, dizziness, chest pain, sob, n/v/d. Objective - Vital Signs/Intake and Output Vital Signs (last 24 hours): Temp Pulse Resp BP Pulse Ox 98.1 F 71 20 121/77 97 03/24/18 07:56 03/24/18 07:56 03/24/18 07:56 03/24/18 07:56 03/24/18 07:56 - Medications Medications: Current Medications Famotidine (Pepcid) 20 mg PO BID [facility] Last Admin: 03/24/18 08:20 Dose: 20 mg Multivit/Folic Acid/Iron () 1 tab PO DAILY [facility] Last Admin: 03/24/18 08:20 Dose: 1 tab Sodium Chloride ([place] Nasal [place]) 2 sprays TONIA Q4 PRN PRN Reason: Nasal congestion - Labs Labs: 03/24/18 10:51 03/24/18 10:51 PT 12.4 Seconds (9.8-13.1) 03/20/18 14:25 INR 1.1 03/20/18 14:25 APTT 30.5 Seconds (25.6-37.1) 03/20/18 14:25 - Constitutional Appears: Well, Non-toxic, No Acute Distress - Head Exam Head Exam: ATRAUMATIC, NORMAL INSPECTION, NORMOCEPHALIC - Eye Exam Eye Exam: EOMI, Normal appearance Pupil Exam: NORMAL ACCOMODATION, PERRL - ENT Exam ENT Exam: Mucous Membranes Moist - Neck Exam Neck Exam: Full ROM, Normal Inspection - Respiratory Exam Respiratory Exam: NORMAL BREATHING PATTERN - Extremities Exam Extremities Exam: Full ROM, Normal Inspection - Back Exam Back Exam: Full ROM - Neurological Exam Neurological Exam: Alert, Awake, CN II-XII Intact, Normal Gait, Oriented x3, Reflexes Normal Neuro motor strength exam: Left Upper Extremity: 5, Right Upper Extremity: 5, Left Lower Extremity: 5, Right Lower Extremity: 5 - Psychiatric Exam Psychiatric exam: Normal Affect, Normal Mood - Skin Skin Exam: Normal Color Assessment and Plan (1) Multiple sclerosis Assessment & Plan: Ms. Mcelroy's symptoms have improved since admission. She has completed 4 doses of IV Solumedrol. -Neurologically she is cleared for d/c. -Continue steroids per heme/onc recommendations. 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 -Pt has already contacted [facility] for MS treatment and management--she will schedule an appt as soon as possible. Case discussed with Dr. Edouard Thank you for allowing us to participate in this pt's care. Status: Acute
--- NOTE | 2018-03-25 09:25 | CP.PCM.DIS ---
Provider - Provider Date of Admission: 03/20/18 14:58 Attending physician: Kaylah Aguillon MD Consults: 03/20/18 14:58 Neurology Consult Stat Comment: Consulting Provider: Nacho Green Consulting Physician: Nacho Green Reason for Consult: Multiple sclerosis RESEARCH PHYSICIST Consult Stat Comment: Consulting Provider: Chauncey Scott Consulting Physician: Chauncey Scott Reason for Consult: New dx 03/21/18 02:23 Case Management Referral Routine Comment: Physician Instructions: Reason For Exam: Reason for Referral: Discharge Planning 03/21/18 20:04 Hematology Oncology Consult Routine Comment: Consulting Provider: David Pérez Consulting Physician: David Pérez Reason for Consult: thrombocytopenia, plts 32 Time Spent in preparation of Discharge (in minutes): 15 Diagnosis - Discharge Diagnosis (1) DVT prophylaxis Status: Acute (2) Multiple sclerosis Status: Acute (3) Optic neuritis Status: Acute (4) Status: Acute (5) Acute ITP Status: Acute (6) Abdominal pain Status: Acute (7) Headache Status: Acute Hospital Course - Lab Results Lab Results: Most Recent Lab Values WBC 29.3 K/uL (4.8-10.8) H 03/24/18 10:51 RBC 4.50 Mil/uL (3.80-5.20) 03/24/18 10:51 Hgb 13.7 g/dL (12.0-16.0) 03/24/18 10:51 Hct 42.8 % (34.0-47.0) 03/24/18 10:51 MCV 95.1 fl (81.0-99.0) 03/24/18 10:51 MCH 30.5 pg (27.0-31.0) 03/24/18 10:51 MCHC 32.1 g/dL (33.0-37.0) L 03/24/18 10:51 RDW 13.3 % (11.5-14.5) 03/24/18 10:51 Plt Count 38 K/uL (130-400) L D 03/24/18 10:51 MPV 7.8 fl (7.2-11.7) 03/23/18 05:26 Neut % (Auto) 87.1 % (50.0-75.0) H 03/23/18 05:26 Lymph % (Auto) 6.2 % (20.0-40.0) L 03/23/18 05:26 [place] % (Auto) 6.6 % (0.0-10.0) 03/23/18 05:26 Eos % (Auto) 0.0 % (0.0-4.0) 03/23/18 05:26 Baso % (Auto) 0.1 % (0.0-2.0) 03/23/18 05:26 Neut # (Auto) 29.1 K/uL (1.8-7.0) H 03/23/18 05:26 Lymph # (Auto) 2.1 K/uL (1.0-4.3) 03/23/18 05:26 [place] # (Auto) 2.2 K/uL (0.0-0.8) H 03/23/18 05:26 Eos # (Auto) 0.0 K/uL (0.0-0.7) 03/23/18 05:26 Baso # (Auto) 0.0 K/uL (0.0-0.2) 03/23/18 05:26 Neutrophils % (Manual) 93 % (42-75) H 03/23/18 05:26 Band Neutrophils % 2 % (0-2) 03/23/18 05:26 Lymphocytes % (Manual) 3 % (20-50) L 03/23/18 05:26 Monocytes % (Manual) 1 % (0-10) 03/23/18 05:26 Basophils % (Manual) 1 % (0-2) 03/23/18 05:26 Platelet Estimate TEST NOT PERFORMED 03/23/18 05:26 Plt Clumps, EDTA Present 03/23/18 05:26 PT 12.4 Seconds (9.8-13.1) 03/20/18 14:25 INR 1.1 03/20/18 14:25 APTT 30.5 Seconds (25.6-37.1) 03/20/18 14:25 Sodium 139 mmol/l (132-148) 03/24/18 10:51 Potassium 3.5 MMOL/L (3.6-5.0) L 03/24/18 10:51 Chloride 104 mmol/L (98-107) 03/24/18 10:51 Carbon Dioxide 24 mmol/L (22-30) 03/24/18 10:51 Anion Gap 15 (10-20) 03/24/18 10:51 BUN 14 mg/dl (7-17) 03/24/18 10:51 Creatinine 0.7 mg/dl (0.7-1.2) 03/24/18 10:51 Est GFR ( Amer) > 60 03/24/18 10:51 Est GFR (Non-Af Amer) > 60 03/24/18 10:51 Random Glucose 137 mg/dL (65-105) H 03/24/18 10:51 Calcium 9.8 mg/dL (8.4-10.2) 03/24/18 10:51 Total Bilirubin 0.2 mg/dl (0.2-1.3) 03/23/18 05:26 AST 13 U/L (14-36) L D 03/23/18 05:26 ALT 19 U/L (9-52) 03/23/18 05:26 Alkaline Phosphatase 69 U/L (38-126) 03/23/18 05:26 Total Protein 7.8 G/DL (6.3-8.2) 03/23/18 05:26 Albumin 4.5 g/dL (3.5-5.0) 03/23/18 05:26 Globulin 3.4 gm/dL (2.2-3.9) 03/23/18 05:26 Albumin/Globulin Ratio 1.3 (1.0-2.1) 03/23/18 05:26 Serum HCG, Qual Positive (NEGATIVE) 03/22/18 11:18 Beta HCG, Quant 83335.00 mIU/mL 03/22/18 11:18 Urine Color Yellow (YELLOW) 03/20/18 15:10 Urine Clarity Slighty-cloudy (Clear) 03/20/18 15:10 Urine pH 6.0 (5.0-8.0) 03/20/18 15:10 Ur Specific [place] 1.012 (1.003-1.030) 03/20/18 15:10 Urine Protein Negative mg/dL (NEGATIVE) 03/20/18 15:10 Urine Glucose (UA) Neg mg/dL (NEGATIVE) 03/20/18 15:10 Urine Ketones Negative mg/dL (NEGATIVE) 03/20/18 15:10 Urine Blood Small (NEGATIVE) 03/20/18 15:10 Urine Nitrate Negative (NEGATIVE) 03/20/18 15:10 Urine Bilirubin Negative (NEGATIVE) 03/20/18 15:10 Urine Urobilinogen 0.2-1.0 mg/dL (0.2-1.0) 03/20/18 15:10 Ur Leukocyte Esterase Neg [place]/uL (Negative) 03/20/18 15:10 Urine RBC (Auto) 4 /hpf (0-3) H 03/20/18 15:10 Urine Microscopic WBC < 1 /hpf (0-5) 03/20/18 15:10 Ur Squamous Epith Cells 2 /hpf (0-5) 03/20/18 15:10 Urine Bacteria Rare (<OCC) 03/20/18 15:10 - Hospital Course Hospital Course: pulse steroids, obgyn neuro imaging studies Discharge Exam - Head Exam Head Exam: ATRAUMATIC, NORMAL INSPECTION, NORMOCEPHALIC Discharge Plan - Discharge Medications Prescriptions: Famotidine [Pepcid] 20 mg PO BID #14 tab Pnv No.95/Ferrous Fum/Folic AC [ Vitamins Tablet] 1 each PO DAILY #30 tablet predniSONE [predniSONE Tab] 100 mg PO DAILY #70 tab Sodium Chloride Nasal [place] [[place] Nasal [place]] 2 sprays TONIA Q4 PRN #1 bottle PRN Reason: Nasal Congestion - Follow Up Plan Condition: STABLE Disposition: HOME/ ROUTINE Instructions: Optic Neuritis, Multiple Sclerosis, Adult (DC) Additional Instructions: follow up with MD 1 week [facility] [address] [place], [place] [id number] final dx-optic neurotis, new onset multiple sclerosis, first trimester doign well. cleared by specialists. no comalints. f/u rmg and neuro and obgyn Referrals: David Pérez MD [Staff Provider] - Chauncey Scott MD [Staff Provider] - Nacho Green MD [Medical Doctor] - Jean Fitch, DNP, [employer]PER [Advanced Practice Nurse] -
== END 2018-03-24 14:30 | disposition home or self-care (01) | DRG 13 ==
LOC: H.ER 10:01 → H.ERHOLD 14:58 → MERGE 14:58 → H.MEDSURG1 19:12
PROVIDERS: ADMIT Family Medicine; ATTEND Family Medicine
DX: G35 Multiple sclerosis (principal); D69.3 Immune thrombocytopenic purpura; H46.9 Unspecified optic neuritis; H54.40 Blindness, one eye, unspecified eye; J45.909 Unspecified asthma, uncomplicated; F17.210 Nicotine dependence, cigarettes, uncomplicated; Z3A.01 Less than 8 weeks gestation of pregnancy; Z88.0 Allergy status to penicillin

== ENCOUNTER 2018-04-15 20:36 | Emergency (ER) | payer MEDICAID ==
[2018-04-15 20:36] VITALS: BMI 31.4
[2018-04-15 21:42] VITALS: PULSE 91
[2018-04-15] MEDS: Lactated Ringer's 1,000 ML IV STA ×2 (21:45→21:49)
[2018-04-15 22:03] LABS: BASO # 0.1 K/uL (0.0-0.2); BASO % 0.8 % (0.0-2.0); EOS # 0.3 K/uL (0.0-0.7); EOS % 2.5 % (0.0-4.0); HEMOGLOBIN 11.8 g/dL (12.0-16.0); LYMPH # 3.8 K/uL (1.0-4.3); LYMPH % 29.5 % (20.0-40.0); MEAN CORPUSCULAR HEMOGLOBIN 30.7 pg (27.0-31.0); MEAN CORPUSCULAR HGB CONC 33.4 g/dL (33.0-37.0); MEAN PLATELET VOLUME 7.7 fl (7.2-11.7); MONO # 1.2 K/uL (0.0-0.8); MONO % 9.5 % (0.0-10.0); NEUT # 7.4 K/uL (1.8-7.0); NEUT % 57.7 % (50.0-75.0); RBC 3.85 Mil/uL (3.80-5.20); RED CELL DISTRIBUTION WIDTH 13.2 % (11.5-14.5); WHITE BLOOD COUNT 12.8 K/uL (4.8-10.8)
[2018-04-15 22:09] LABS: ALB/GLOB RATIO 1.3 (1.0-2.1); ALBUMIN 3.8 g/dL (3.5-5.0); ALT/SGPT 29 U/L (9-52); AST/SGOT 19 U/L (14-36); BLOOD UREA NITROGEN 13 mg/dl (7-17); CALCIUM 9.8 mg/dL (8.4-10.2); GFR NON-AFRICAN AMERICAN > 60
[2018-04-15 22:11] LABS: SQUAMOUS EPITHIAL 3 /hpf (0-5); URINE BACTERIA OCC (<OCC); URINE BILIRUBIN NEGATIVE (NEGATIVE); URINE BLOOD NEGATIVE (NEGATIVE); URINE CLARITY CLOUDY (Clear); URINE COLOR YELLOW (YELLOW); URINE GLUCOSE (UA) NEG (NEGATIVE); URINE LEUKOCYTE ESTERASE SMALL Leu/uL (Negative); URINE PROTEIN NEGATIVE (NEGATIVE)
--- NOTE | 2018-04-15 23:01 | ED PDOC ---
HPI: Female Pain Time Seen by Provider: 04/15/18 20:59 Chief Complaint (Nursing): Female Genitourinary Chief Complaint (Provider): Female Genitourinary History Per: Patient History/Exam Limitations: no limitations Onset/Duration Of Symptoms: Days Current Symptoms Are (Timing): Still Present Additional Complaint(s): 32 y/o female, with a history of second trimester loss of and currently 8 weeks , presents to the ED for evaluation of vaginal b leeding. Patient reports of developing cramping two days ago that turned into more of a constant pressure-like pain. Patient additionally reports of developing vaginal spotting today that initially looked brown but has now turned pinkish. Patient states spotting is less than a pad and is only noticeable with urination and wiping. Patient reports of additionally developing nausea that has been ongoing since . Otherwise, patient denies vomiting and diarrhea. PMD: Dr. Moreno Abnormal Vaginal Bleeding: Yes : 4 Para: 2 Past Medical History Reviewed: Historical Data, Nursing Documentation, Vital Signs Vital Signs: Last Vital Signs Temp 98.9 F 04/15/18 21:40 Pulse 91 H 04/15/18 21:40 Resp 16 04/15/18 21:40 BP 129/80 04/15/18 21:40 Pulse Ox 98 04/15/18 21:40 - Medical History PMH: Asthma, Multiple Sclerosis Denies: HIV, Chronic Kidney Disease - Surgical History Surgical History: Cholecystectomy, - Family History Family History: States: Hypertension - Social History Current smoker - smoking cessation education provided: Yes - Home Medications Home Medications: Ambulatory Orders Medication Instructions Recorded Pnv No.95/Ferrous Fum/Folic AC 1 each PO DAILY #30 tablet 03/24/18 [ Vitamins Tablet] RX: Famotidine [Pepcid] 20 mg PO BID #14 tab 03/24/18 RX: Sodium Chloride Nasal [place] 2 sprays TONIA Q4 PRN #1 bottle 03/24/18 [[place] Nasal [place]] RX: predniSONE [predniSONE Tab] 100 mg PO DAILY #70 tab 03/24/18 Nitrofurantoin Macrocrystals 1 cap PO BID #14 cap 04/16/18 [Macrobid] - Allergies Allergies/Adverse Reactions: Allergies Allergy/AdvReac Type Severity Reaction Status Date / Time Penicillins Allergy SWELLING Verified 04/15/18 20:46 Review of Systems ROS Statement: Except As Marked, All Systems Reviewed And Found Negative (as per HPI) Gastrointestinal: Positive for: Nausea, Abdominal Pain (cramping). Negative for: Vomiting, Diarrhea Genitourinary Female: Positive for: Vaginal Bleeding Physical Exam - Reviewed Nursing Documentation Reviewed: Yes Vital Signs Reviewed: Yes - Physical Exam Appears: Positive for: No Acute Distress Head Exam: Positive for: ATRAUMATIC, NORMOCEPHALIC Skin: Positive for: Warm, Dry Eye Exam: Positive for: EOMI, PERRL Neck: Positive for: Painless ROM, Supple Cardiovascular/Chest: Positive for: Regular Rate, Rhythm. Negative for: Murmur Respiratory: Positive for: Normal Breath Sounds. Negative for: Respiratory Distress Gastrointestinal/Abdominal: Positive for: Soft, Tenderness (suprapubic tenderness to palpation) Pelvic Exam: Positive for: External Exam Normal, No Cerv. Motion Tender (Cervic is closed.), Tender Uterus, Other (building economist Minorka Patiño acted as business advisor. Vaginal canal with no blood but white physiological fluid. ) Back: Negative for: Normal Inspection, Decreased ROM Extremity: Positive for: Normal ROM. Negative for: Deformity Lymphatic: Negative for: Adenopathy Neurologic/Psych: Positive for: Alert. Negative for: Motor/Sensory Deficits - Laboratory Results Result Diagrams: 04/15/18 21:50 04/15/18 21:50 Lab Results: Total Bilirubin 0.3 mg/dl (0.2-1.3) 04/15/18 21:50 AST 19 U/L (14-36) 04/15/18 21:50 ALT 29 U/L (9-52) 04/15/18 21:50 Alkaline Phosphatase 54 U/L (38-126) 04/15/18 21:50 Total Protein 6.8 G/DL (6.3-8.2) 04/15/18 21:50 Albumin 3.8 g/dL (3.5-5.0) 04/15/18 21:50 Globulin 3.0 gm/dL (2.2-3.9) 04/15/18 21:50 Albumin/Globulin Ratio 1.3 (1.0-2.1) 04/15/18 21:50 Urine Color Yellow (YELLOW) 04/15/18 21:50 Urine Clarity Cloudy (Clear) 04/15/18 21:50 Urine pH 6.0 (5.0-8.0) 04/15/18 21:50 Ur Specific [place] 1.024 (1.003-1.030) 04/15/18 21:50 Urine Protein Negative mg/dL (NEGATIVE) 04/15/18 21:50 Urine Glucose (UA) Neg mg/dL (NEGATIVE) 04/15/18 21:50 Urine Ketones Negative mg/dL (NEGATIVE) 04/15/18 21:50 Urine Blood Negative (NEGATIVE) 04/15/18 21:50 Urine Nitrate Negative (NEGATIVE) 04/15/18 21:50 Urine Bilirubin Negative (NEGATIVE) 04/15/18 21:50 Urine Urobilinogen 1.0 mg/dL (0.2-1.0) 04/15/18 21:50 Ur Leukocyte Esterase Small [place]/uL (Negative) 04/15/18 21:50 Urine RBC (Auto) 3 /hpf (0-3) 04/15/18 21:50 Urine Microscopic WBC 22 /hpf (0-5) H 04/15/18 21:50 Ur Squamous Epith Cells 3 /hpf (0-5) 04/15/18 21:50 Urine Bacteria Occ (<OCC) H 04/15/18 21:50 - ECG O2 Sat by Pulse Oximetry: 98 (RA) Pulse Ox Interpretation: Normal Medical Decision Making Medical Decision Making: Time: 2114 Impression: Vaginal spotting and pain in the first trimester Differentials include but not limited to threatened miscarriage, UTI, cystitis and ectopic Plan: -- CMP -- ED Urine -- ED Urine Dipstick -- CBC with Differentials -- Chlamydia/GC RNA, TMA -- IV Insertion Time: 2143 Plan: -- US OB Transvaginal -- Urinalysis -- Urine Culture -- Lactated Ringer's IV 1000 mls/hr Time: 2244 Plan: -- Type and Screen -- Beta-HCG, Quantitative Time: 2354 US RESULTS Findings Uterus Twin Live intrauterine gestation. FETUS A CRL measures 2.1 cm, equivalent to 8 weeks 5 days gestation. Gestational sac diameter measures 4.3 cm, equivalent to 9 weeks 5 days gestation. Yolk sac is seen, measures 0.4 cm. Heart rate: 169 bpm. age (Ultrasound estimated): 9 weeks 2 days. FETUS B CRL measures 1.6 cm, equivalent to 8 weeks 0 days gestation. Gestational sac diameter measures 5.1 cm, equivalent to 11 weeks 3 days gestation. Yolk sac is not seen. Heart rate: 168 bpm. age (Ultrasound estimated): 9 weeks 5 days. Shital-gestational hemorrhage: None. Uterus is anteverted. No mass. Cervix Measures 4.8 cm. Closed. No cervical abnormality seen. Right Ovary Not seen. Left Ovary Not seen. Free Fluid None. Other Findings None. Impression Twin live intrauterine gestation. Positive heart rate. Normal uterus. Ovaries are not seen. Electronically signed on Apr 15, 2018 11:55:48 PM EST by: Kb Arias M.D., TOMÁS Certified By [facility]BR [facility] Fellowship Trained MRI and CT Specialist Scribe Attestation: Documented by Julia Howard, acting as a scribe for Ita Hansen MD. Provider Scribe Attestation: All medical record entries made by the Scribe were at my direction and personally dictated by me. I have reviewed the chart and agree that the record accurately reflects my personal performance of the history, physical exam, medical decision making, and the department course for this patient. I have also personally directed, reviewed, and agree with the discharge instructions and disposition. Disposition - Clinical Impression Clinical Impression: Vaginal bleeding in , UTI (urinary tract infection), Twin gestation in first trimester - Disposition Referrals: Lucio Giraldo MD [Staff Provider] - 04/16/18 (CALL TOMORROW FOR FOLLOW UP APPOINTMENT EARLY NEXT WEEK) Disposition: Routine/Home Disposition Time: 00:00 Condition: IMPROVED Prescriptions: Nitrofurantoin Macrocrystals [Macrobid] 1 cap PO BID #14 cap Instructions: Urinary Tract Infections in Adults, Having Twins, Bleeding With (DC) Forms: [facility] ED School/Work Excuse
[2018-04-16 00:55] VITALS: BP 121/81; RESP 15; TEMP 98.5
--- NOTE | 2018-04-16 11:37 | US ---
Date of service: 04/15/2018 PROCEDURE: First trimester ultrasound HISTORY: pelvic pain spotting threatend miscarriage COMPARISON: None TECHNIQUE: Standard protocol for this study/examination. FINDINGS: LMP: 02/14/2018 Prior examinations from the current : None TECHNIQUE: Real-time 2D imaging, duplex and color Doppler. FINDINGS: FETUS A Cardiac activity: Present Rate: 169 BPM Measurements: [place] rump length: 2.09 cm Gestational age based on CRL 8 WEEKS 5 DAYS Gestational age 9 WEEKS 5 DAYS based on gestational sac measurement 4.28 cm Gestational age derived from LMP: 8 weeks 4 days HAYDEN based on LMP: 11/21/2018 HAYDEN based on biometry: 11/16/2018 Gestational concordance documented Yolk sac identified Subchorionic hemorrhage: None FETUS B: LMP: 02/14/2018 Prior examinations from the current : NONE TECHNIQUE: Real-time 2D imaging, duplex and color Doppler. FINDINGS: Cardiac activity: Present Rate: 168 BPM Measurements: [place] rump length: 0.59 cm Gestational age based on CRL 8 WEEKS Gestational age 10 weeks 3 days based on gestational sac measurement 5.44 cm Gestational age derived from LMP: 8 weeks 4 days HAYDEN based on LMP: 11/21/2018 HAYDEN based on biometry: 11/13/2018 Gestational concordance noted Yolk sac identified MATERNAL: Cervix: No Cervical abnormalities: Negative examination for cervical dilatation or effacement. Closed cervix measuring 4.81 cm Subchorionic hemorrhage: None Fluid in the cul-de-sac: None IMPRESSION: Twin intrauterine gestations described in greater detail above. Gestational concordance documented. Concordant findings (preliminary report) provided by [facility].
[2018-04-19 14:17] VITALS: O2SAT 98
== END 2018-04-16 00:54 | disposition home or self-care (01) ==
LOC: H.ER 20:36
DX: O20.9 Hemorrhage in early pregnancy, unspecified (principal); O30.001 Twin pregnancy, unspecified number of placenta and unspecified number of amniotic sacs, first trimester; O23.41 Unspecified infection of urinary tract in pregnancy, first trimester; O99.511 Diseases of the respiratory system complicating pregnancy, first trimester; J45.909 Unspecified asthma, uncomplicated; O99.331 Smoking (tobacco) complicating pregnancy, first trimester; Z3A.09 9 weeks gestation of pregnancy; G35 Multiple sclerosis

== ENCOUNTER 2018-08-27 20:29 | Emergency (ER) | payer OTHER ==
[2018-08-27 20:48] VITALS: BMI 36.9
[2018-08-27] MEDS ORDERED: Lactated Ringer's 1,000 ML IV ONE (21:43)
[2018-08-27] MEDS ORDERED: Lactated Ringer's 1,000 ML IV SCH ×2 (21:45→22:45)
[2018-08-27 22:04] LABS: ALB/GLOB RATIO 1.2 (1.0-2.1); ALBUMIN 3.7 g/dL (3.5-5.0); ALT/SGPT 26 U/L (9-52); AMYLASE 42 U/L (30-110); AST/SGOT 30 U/L (14-36); BLOOD UREA NITROGEN 5 mg/dl (7-17); CALCIUM 9.4 mg/dL (8.4-10.2); GFR NON-AFRICAN AMERICAN > 60; LIPASE 27 U/L (23-300)
[2018-08-27 23:14] LABS: SQUAMOUS EPITHIAL 1 /hpf (0-5); URINE BACTERIA MOD (<OCC); URINE BILIRUBIN NEGATIVE (NEGATIVE); URINE BLOOD NEGATIVE (NEGATIVE); URINE CLARITY SLIGHTY-CLOUDY (Clear); URINE COLOR YELLOW (YELLOW); URINE GLUCOSE (UA) NEG (NEGATIVE); URINE LEUKOCYTE ESTERASE NEG Leu/uL (Negative); URINE PROTEIN NEGATIVE (NEGATIVE); URINE UROBILINOGEN 0.2-1.0 mg/dL (0.2-1.0)
[2018-08-27 23:22] LABS: BASO % 0.2 % (0.0-2.0); EOS % 0.4 % (0.0-4.0); HEMOGLOBIN 11.3 g/dL (12.0-16.0); LYMPH # 1.8 K/uL (1.0-4.3); MEAN CELL VOLUME 88.2 fl (81.0-99.0); MEAN CORPUSCULAR HEMOGLOBIN 30.4 pg (27.0-31.0); MEAN CORPUSCULAR HGB CONC 34.5 g/dL (33.0-37.0); MEAN PLATELET VOLUME 8.3 fl (7.2-11.7); MONO # 1.2 K/uL (0.0-0.8); MONO % 15.3 % (0.0-10.0); NEUT # 4.9 K/uL (1.8-7.0); NEUT % 62.1 % (50.0-75.0); RBC 3.71 Mil/uL (3.80-5.20); RED CELL DISTRIBUTION WIDTH 13.3 % (11.5-14.5)
[2018-08-27] MEDS ORDERED: Bicitra 30 ML UD PO ONE (23:43)
[2018-08-28] MEDS ORDERED: Lactated Ringer's 1,000 ML IV SCH (02:45)
[2018-08-28 13:11] VITALS: BP 99/60; PULSE 91; RESP 18; TEMP 98.2; O2SAT 100
--- NOTE | 2018-08-28 13:39 | OBHP ---
Datetime: 08/27/2018 21:39 IP Adm Impression: , intrauterine IP Chief Complaint Other: Headache, Nausea, vomiting IP Admit Plan: Observation/Evaluation Admit Comment, IP Provider: 33 y/o , 27.2 weeks twin with HAYDEN 11/23/18 presents to O BED with abdominal pain and nausea/vomiting. Patient started having migraine headache 5 days ago foll owed by nuasea and vomiting. Abdominal pain is lower abdominal, lower back 7/10 intermittent. Paitent is unable to tolerate oral liquid including water. Patient is having 4-5 episodes of yellowish/green herman vomiting however she noted some specks of blood today. Reports decreased FM this morning but feel ing now. Denies any urinary symptoms, diarrhea, LOF, VB, Fever, chills. Care: Dr. Giraldo, Dr Zuñiga for high risk twins . Records not available PMHx: MS Dx in 02/2018 PSHx: CS x 2, Cholecystectomy 2002 Allergies: Penicillin - Anaphylexis Social Hx: Deniessmoking/drugs/alcohol F/H: DM, HTN, Liver Ca in maternal and paternal side Meds: PNVs PE Gen: NAD HEENT: NCAT, PERRLA Chest: RRR, S1S2 present Lungs: CTAB Abdomen: mild LLQ and suprapubic pressure and tendeness, Soft, Gravid Ext: No pedal edema A/P: 33 y/o , 27.2 weeks twin with HAYDEN 11/23/18 presents to [facility] with abdominal pa in and nausea/vomiting. - EFM and toco monitoring - CBC, CMP, UA, Amylase and lipase - LR bolus 1L - ZOfran 4 mg IV for nausea Case discussed with Dr. Pantera Moyer, PGY1 Attending Note: Patient was seen and evaluated with resident and I agree with the above. Pelvic Type - PN: Not Done Extremities - PN: Normal Abdomen - PN: Normal Back - PN: Normal Breast - PN: Not Done Lungs - PN: Normal Heart - PN: Normal Thyroid - PN: Not Done Neurologic - PN: Normal HEENT - PN: Normal General - PN: Normal FHR - Baseline A Provider: 125 Contraction Comments Provider: Absent EGA AdmitDate IP: 27.2 Vital Signs Provider: Reviewed IP Chief Complaint: Maternal discomfort; Other NICHD Variability Prov Fetus A: Moderate 6-25bpm NICHD Accel Fetus A IP Provider: [id number] Genitourinary Exam: Not Done DTRs - PN: Not Done
--- NOTE | 2018-08-30 11:10 | OBPN ---
Datetime: 08/27/2018 21:39 Contraction Comments Provider: Absent FHR - Baseline A Provider: 125 IP Progress Note Comment: S: patient reports feeling much better, last episode of vomitus was 1 am t his morning. Tolerated po Liquid and is stating she is very hungry. O: Vital signs stable. Heart: S1 and S2 appreciated. No murmurs Lungs: Clear bilaterally. Abdomen: Soft, non-tender, bowel sounds appreciated in all four quadrants. A+P: 33 y/o , 27.2 weeks twin with HAYDEN 11/23/18 presents to [facility] with abdominal pa in and nausea/vomiting secondary to migraine headache - symptoms now resolved - Reactive Strip - Vital signs stable - Stable to be discharged home - Will follow up with Dr. Giraldo 09/06/18. - For today, continue bland diet as tolerated. Dicussed with Dr. Pantera Fuller, PGY 1 Attending Note: Patient was evaluated and I agree with the above. Vital Signs Provider: Reviewed NICHD Accel Fetus A IP Provider: 15X15 NICHD Variability Prov Fetus A: Moderate 6-25bpm
== END 2018-08-28 08:30 | disposition home or self-care (01) ==
LOC: H.EROB2 20:29
DX: O26.92 Pregnancy related conditions, unspecified, second trimester (principal); R10.2 Pelvic and perineal pain; O30.002 Twin pregnancy, unspecified number of placenta and unspecified number of amniotic sacs, second trimester; O21.0 Mild hyperemesis gravidarum; Z3A.27 27 weeks gestation of pregnancy
CPT/HCPCS: 80053; 81003; 82150; 83690; 85025; 96361; 96374; 96375; 99283; J2405; J2765; J7120